=== PATIENT | male | born 1950 | race Caucasian/White ===

== ENCOUNTER 2017-04-07 12:58 | Emergency (ER) | payer MEDICARE ==
[~2017-04-07] VITALS: Ht 188 cm; Wt 76.1 kg
[~2017-04-07 12:58] MED LIST: TAMS-11 PO
[2017-04-07 13:00] VITALS: BP 188/120
[2017-04-07] MEDS ORDERED: OXYcodone/APAP 5/325MG TABLET PO ONE (14:00)
[2017-04-07] MEDS ORDERED: IBUPROFEN 200 MG TABLET PO ONE (14:00)
[2017-04-07] MEDS ORDERED: OXYcodone/APAP 5/325MG TABLET ONE (14:01)
[2017-04-07] MEDS ORDERED: IBUPROFEN 200 MG TABLET ONE (14:01)
== END 2017-04-07 14:18 | disposition home or self-care (01) ==
LOC: ED 14:12
DX: K02.9 Dental caries, unspecified (principal); L03.211 Cellulitis of face; I10 Essential (primary) hypertension
CPT/HCPCS: 99283